=== PATIENT | female | born 1985 | race African-American/Black ===

== ENCOUNTER 2017-04-13 14:52 | Emergency (ER) | payer MEDICAID, OTHER ==
[~2017-04-13] VITALS: Ht 165.1 cm; Wt 91.0 kg
[2017-04-13 15:22] VITALS: BP 136/63
[2017-04-13 15:51] LABS: CLARITY URINE CLEAR (CLEAR); COLOR URINE DARK YELLOW (YELLOW); KETONES URINE TRACE (NEGATIVE); LEUKOCYTE ESTERASE URINE 1+ (NEGATIVE); NITRITE URINE POSITIVE (NEGATIVE); OCCULT BLOOD URINE TRACE (NEGATIVE); PROTEIN URINE TRACE (NEGATIVE); SPECIFIC GRAVITY URINE 1.036 (1.005-1.030)
== END 2017-04-13 20:40 | disposition left against medical advice (07) ==
LOC: ER 15:51
DX: N93.9 Abnormal uterine and vaginal bleeding, unspecified (principal); Z53.21 Procedure and treatment not carried out due to patient leaving prior to being seen by health care provider
CPT/HCPCS: 81003; 81025

== ENCOUNTER 2017-12-02 08:35 | Observation (INO) | payer OTHER ==
[~2017-12-02] VITALS: Ht 165.1 cm; Wt 102.5 kg
== END 2017-12-02 10:40 | disposition left against medical advice (07) ==
LOC: L&D 08:35
PROVIDERS: ADMIT Specialist; ATTEND Specialist
DX: O36.8130 Decreased fetal movements, third trimester, not applicable or unspecified (principal); Z3A.37 37 weeks gestation of pregnancy
CPT/HCPCS: 99281; G0378